=== PATIENT | male | born 1990 | race Caucasian/White ===

== ENCOUNTER 2018-10-25 16:56 | Emergency (ER) | payer SELFPAY ==
[~2018-10-25] VITALS: Ht 177.8 cm; Wt 63.5 kg
[2018-10-25 17:00] VITALS: BP 122/78
[2018-10-25] MEDS ORDERED: DIPHTH,PERTUSS(ACELL),TET TOX 0.5 ML DISP.SYRIN. VAX IM ONE (17:15)
--- NOTE | 2018-10-25 17:26 | PHYS DOC ---
Past History Past Medical History: No Pertinent History Past Surgical History: No Surgical History Alcohol Use: None Drug Use: None Adult General Chief Complaint Chief Complaint: LACERATION/AVULSION [facility] HPI Patient is a 28 year old right-handed male who presents with complaining of laceration of finger tip of left index finger that happened 2 days ago without seeking medical attention at that time. Patient states he is going to have a competition and wanted to make sure he does not get infection. Patient is not up -to-date with tetanus summarization. Review of Systems Review of Systems Constitutional: Denies fever or chills [] Eyes: Denies change in visual acuity, redness, or eye pain [] HENT: Denies nasal congestion or sore throat [] Respiratory: Denies cough or shortness of breath [] Cardiovascular: No additional information not addressed in HPI [] GI: Denies abdominal pain, nausea, vomiting, bloody stools or diarrhea [] : Denies dysuria or hematuria [] Musculoskeletal: Denies back pain or joint pain [] Integument: Denies rash or skin lesions [] Neurologic: Denies headache, focal weakness or sensory changes [] Endocrine: Denies polyuria or polydipsia [] All other systems were reviewed and found to be within normal limits, except as documented in this note. Current Medications Current Medications Current Medications Medications (Trade) Dose Ordered Sig/Tyesha Start Time Stop Time Status Last Admin Dose Admin Diphtheria/ Tetanus/Acell Pertussis (Boostrix) 0.5 ml ONCE ONCE 10/25/18 17:15 10/25/18 17:16 DC Allergies Allergies Allergies Coded Allergies Type Severity Reaction Last Updated Verified No Known Drug Allergies 10/25/18 No Physical Exam Physical Exam Constitutional: Well developed, well nourished, no acute distress, non-toxic appearance. [] HENT: Normocephalic, atraumatic Eyes: PERRLA, EOMI, conjunctiva normal, no discharge. [] Neck: Normal range of motion, no tenderness, supple, no stridor. [] Cardiovascular:Heart rate regular rhythm, no murmur [] Lungs & Thorax: Bilateral breath sounds clear to auscultation [Abdomen: Bowel sounds normal, soft, no tenderness, no masses, no pulsatile masses. [] Skin: Warm, dry, no erythema, no rash. [] Back: No tenderness, no CVA tenderness. [] Extremities: 1 cm laceration of tip of left index finger in radial side with delayed healing,No tenderness, no cyanosis, no clubbing, ROM intact, no edema. [ ] Neurologic: Alert and oriented X 3, normal motor function, normal sensory function, no focal deficits noted. [] Psychologic: Affect normal, judgement normal, mood normal. [] Current Patient Data Vital Signs Vital Signs Date Time Temp Pulse Resp B/P (MAP) Pulse Ox O2 Delivery O2 Flow Rate FiO2 10/25/18 17:00 98.2 71 18 98 Room Air EKG EKG [] Radiology/Procedures Radiology/Procedures [] Course & Med Decision Making Course & Med Decision Making discharge: I've spoken with the patient and/or caregivers. I've explained the patient's condition, diagnosis and treatment plan based on information available to me at this time. I've answered the patient's and/or caregivers questions and addressed any concerns. The patient and/or caregivers have a good understanding the patient's diagnosis, condition and treatment plan as can be expected at this point. Vital signs have been stabilized. The patient's condition is stable for discharge from the emergency department. The patient will pursue further outpatient evaluation with her primary care provider or other designated consulting physician as outlined in the discharge instructions. Patient and/or caregivers are agreeable to this plan of care and follow-up instructions have been explained in detail. The patient and/or caregivers have received these instructions in written format and expressed understanding of these discharge instructions. The patient and her caregivers are aware that if any significant change in condition or worsening of symptoms should prompt him to immediately return to this of the closest emergency department. If an emergent department is not readily available I would encourage him to call 911. Jona Disclaimer Dragon Disclaimer This electronic medical record was generated, in whole or in part, using a voice recognition dictation system. Laceration Repair Lac Repair Indication: Left index finger laceration Procedure: The patient was placed in the appropriate position superficial laceration of left index finger with delayed repair was repaired with Dermabond and Steri-Strip. Total repaired wound length: 1 cm Other Items: None The patient tolerated the procedure well Complications:none. Departure Departure: Impression: Primary Impression: Laceration of index finger with delay in treatment Disposition: HOME, SELF-CARE (at 1730) Condition: IMPROVED Referrals: PCP,NO (PCP) Patient Instructions: Laceration Care, Adult, Tissue Adhesive Wound Care Additional Instructions: Keep wound clean and dry PETRONA GOODMAN MD Oct 25, 2018 17:26
== END 2018-10-25 17:35 | disposition home or self-care (01) ==
LOC: ER 16:56
DX: S61.211A Laceration without foreign body of left index finger without damage to nail, initial encounter (principal); X58.XXXA Exposure to other specified factors, initial encounter; Y93.89 Activity, other specified; Y92.89 Other specified places as the place of occurrence of the external cause; Y99.8 Other external cause status
CPT/HCPCS: 12001; 90471; 90715; 99283-25

== ENCOUNTER 2019-03-21 15:10 | Emergency (ER) | payer SELFPAY ==
[~2019-03-21] VITALS: Ht 177.8 cm; Wt 63.5 kg
[2019-03-21] MEDS ORDERED: LIDOCAINE 1%/EPI 1:100,000 20 ML VIAL. IJ ONE (15:15)
--- NOTE | 2019-03-21 15:52 | PHYS DOC ---
Past History Past Medical History: No Pertinent History Past Surgical History: No Surgical History Alcohol Use: None Drug Use: None Adult General Chief Complaint Chief Complaint: HEAD INJURY/TRAUMA HPI HPI Patient is a 28-year-old male who presents with report of head injury that he sustained while going down some stairs. Patient tripped and fell and struck the top of his head on concrete stair. Patient denies any loss of consciousness. He reports moderate headache to the area. He denies any dizziness, nausea or vomiting. He also denies any neck pain. Review of Systems Review of Systems Constitutional: Denies fever or chills [] Eyes: Denies change in visual acuity, redness, or eye pain [] Respiratory: Denies cough or shortness of breath [] Cardiovascular: No additional information not addressed in HPI [] GI: Denies nausea or vomiting[] Musculoskeletal: Denies back pain or joint pain [] Integument: Positive scalp laceration[] Neurologic: Complains of headache without focal weakness or sensory changes [] Current Medications Current Medications Current Medications Medications (Trade) Dose Ordered Sig/Tyesha Start Time Stop Time Status Last Admin Dose Admin Lidocaine/ Epinephrine (Xylocaine 1%-Epi 1:100,000) 20 ml 1X ONCE 03/21/19 15:15 03/21/19 15:18 DC Allergies Allergies Allergies Coded Allergies Type Severity Reaction Last Updated Verified No Known Drug Allergies 03/21/19 No Physical Exam Physical Exam Constitutional: Well developed, well nourished, no acute distress, non-toxic appearance. [] HENT: Normocephalic, with approximately 7 cm laceration to the mid parietal region of scalp that is semicircular in shape extending down into muscle. No galeal involvement is noted. Margins are fairly sharp. [] Eyes: PERRLA, EOMI, conjunctiva normal, no discharge. [] Neck: Normal range of motion, no tenderness, supple, no stridor. [] Cardiovascular:Heart rate regular rhythm, no murmur [] Lungs & Thorax: Bilateral breath sounds clear to auscultation [] Skin: Laceration as noted above. [] Neurologic: Alert and oriented X 3, no focal deficits noted. [] Current Patient Data Vital Signs Vital Signs Date Time Temp Pulse Resp B/P (MAP) Pulse Ox O2 Delivery O2 Flow Rate FiO2 03/21/19 15:15 98.5 90 18 99 Room Air EKG EKG [] Radiology/Procedures Radiology/Procedures [] Impressions: PROCEDURE: CT HEAD WO CONTRAST CT HEAD WO CONTRAST Clinical indications: fall, head injury, large laceration at top of head - stapled COMPARISON: None available. Technique: Noncontrast axial cross sectional scanning of the head was performed. PQRS compliance Statement One or more of the following individualized dose reduction techniques were utilized for this study: 1. Automated exposure control 2. Adjustment of the mA and/or kV according to patient size 3. Use of iterative reconstruction technique Findings: No acute intracranial hemorrhage or midline shift or mass-effect or hydrocephalus or extra-axial fluid collection is seen. No focal hypodense area or sulci effacement is seen to indicate an acute infarct or edema radiographically. No skull fracture or pneumocephalus is seen. No opacification of the mastoid sinuses or the paranasal sinuses is seen. The maxillary sinuses are not completely seen in this study. Impression: No acute intracranial abnormality is seen. Electronically signed by: Obey Dixon MD (03/21/2019 3:51 PM) [id number] Course & Med Decision Making Course & Med Decision Making Pertinent Labs and Imaging studies reviewed. (See chart for details) Laceration Repair by me: Anesthesia: 1% lidocaine with epinephrine locally Location: Parietal region of scalp Tendon/Joint/Nerves: No injury Foreign body: None detected after copious irrigation and exploration Technique: A total of 8 hollie were placed in the scalp with good reapproximation of wound margins. Complexity: No subcutaneous sutures/mucosal repair/edge excision Post Closure Length: 7 cm Patient's bleeding was easily controlled in the department and there is no indication of anemia. No evidence of compartment syndrome, neurologic injury, vascular injury, open joint, tendon laceration, or foreign body. Patient is appropriate for outpatient follow up. 48 hour wound check. Scar minimization instructions given. Dragon Disclaimer Dragon Disclaimer This electronic medical record was generated, in whole or in part, using a voice recognition dictation system. Departure Departure: Impression: Primary Impression: Head injury Additional Impression: Scalp laceration Disposition: 01 HOME, SELF-CARE Condition: STABLE Referrals: PCP,NO (PCP) Patient Instructions: Head Injury, Adult, Laceration Care, Adult Scripts Hydrocodone Bit/Acetaminophen (NORCO 5-325 TABLET) 1 Each Tablet 1 TAB PO PRN Q6HRS PRN for PAIN, #10 TAB 0 Refills Prov: COLETTE MIRAMONTES Jr. DO 03/21/19 Problem Qualifiers Primary Impression: Head injury Encounter type: initial encounter Qualified Codes: S09.90XA - Unspecified injury of head, initial encounter Additional Impression: Scalp laceration Encounter type: initial encounter Qualified Codes: S01.01XA - Laceration without foreign body of scalp, initial encounter COLETTE MIRAMONTES Jr. DO March 21, 2019 15:52
[2019-03-21] MEDS ORDERED: HYDR-3165 PO (16:06)
[2019-03-21 16:20] VITALS: BP 119/71
== END 2019-03-21 16:22 | disposition home or self-care (01) ==
LOC: ER 15:10
DX: S01.01XA Laceration without foreign body of scalp, initial encounter (principal); R51 Headache; W01.198A Fall on same level from slipping, tripping and stumbling with subsequent striking against other object, initial encounter; Y93.89 Activity, other specified; Y92.89 Other specified places as the place of occurrence of the external cause; Y99.8 Other external cause status
CPT/HCPCS: 12002; 70450; 99284-25

== ENCOUNTER 2019-03-31 09:32 | Emergency (ER) | payer SELFPAY ==
[~2019-03-31] VITALS: Ht 177.8 cm; Wt 63.5 kg
[~2019-03-31 09:32] MED LIST: HYDR-3165 PO
[2019-03-31 09:55] VITALS: BP 153/87
--- NOTE | 2019-03-31 10:12 | PHYS DOC ---
Past History Past Medical History: No Pertinent History Past Surgical History: No Surgical History Alcohol Use: None Drug Use: None Adult General Chief Complaint Chief Complaint: SUTURE/STAPLE REMOVAL HPI HPI Patient is a 28-year-old male presents for suture removal. He had hollie placed approximately 10 days ago to his scalp after a mechanical fall as he was tripped up by his dog. He denies any issues with the sutures. No purulent drainage. No fever. No increasing pain. No increasing redness. Symptoms are currently mild.[] Review of Systems Review of Systems Constitutional: Denies fever or chills [] Eyes: Denies change in visual acuity, redness, or eye pain [] HENT: Denies nasal congestion or sore throat [] Respiratory: Denies cough or shortness of breath [] Cardiovascular: No chest pain or palpitations[] GI: Denies abdominal pain, nausea, vomiting, bloody stools or diarrhea [] : Denies dysuria or hematuria [] Musculoskeletal: Denies back pain or joint pain [] Integument: Denies rash or skin lesions [] Neurologic: Denies headache, focal weakness or sensory changes [] Endocrine: Denies polyuria or polydipsia [] All other systems were reviewed and found to be within normal limits, except as documented in this note. Allergies Allergies Allergies Coded Allergies Type Severity Reaction Last Updated Verified No Known Drug Allergies 03/21/19 No Physical Exam Physical Exam Constitutional: Well developed, well nourished, no acute distress, non-toxic appearance. [] HENT: Normocephalic, staple line across the scalp appears to be clean, dry, intact, no purulent drainage, no significant erythema. bilateral external ears normal, oropharynx moist, no oral exudates, nose normal. [] Eyes: PERRLA, EOMI, conjunctiva normal, no discharge. [] Neck: Normal range of motion, no tenderness, supple, no stridor. [] Cardiovascular:Heart rate regular rhythm, no murmur [] Lungs & Thorax: Bilateral breath sounds clear to auscultation [] Abdomen: Not examined[] Skin: Warm, dry, no erythema, no rash. [] Back: No tenderness, no CVA tenderness. [] Extremities: No tenderness, no cyanosis, no clubbing, ROM intact, no edema. [] Neurologic: Alert and oriented X 3, normal motor function, normal sensory function, no focal deficits noted. [] Psychologic: Affect normal, judgement normal, mood normal. [] EKG EKG [] Radiology/Procedures Radiology/Procedures [] Course & Med Decision Making Course & Med Decision Making Pertinent Labs and Imaging studies reviewed. (See chart for details) [] Dragon Disclaimer Dragon Disclaimer This electronic medical record was generated, in whole or in part, using a voice recognition dictation system. Departure Departure: Impression: Primary Impression: Encounter for removal of hollie Disposition: HOME, SELF-CARE Condition: IMPROVED Referrals: PCP,NO (PCP) Patient Instructions: Staple Removal, Care After Additional Instructions: Keep the wound clean and dry. You may shower. Follow-up with your regular doctor. If you do not have regular doctor a list of local clinics will be provided for you. Return to the ER if worsening pain, increasing redness, pu rulent drainage, or any other concerns. Suture/Staple Removal Indication: Scalp staple removal Procedure: The patient was placed in the appropriate position and the hollie] were removed WITHOUT DIFFICULTY:]. Other items: None The patient tolerated the procedure well. Complications: None AFRICA GRAFF DO March 31, 2019 10:12
== END 2019-03-31 10:18 | disposition home or self-care (01) ==
LOC: ER 09:32
DX: S01.01XD Laceration without foreign body of scalp, subsequent encounter (principal); W01.0XXD Fall on same level from slipping, tripping and stumbling without subsequent striking against object, subsequent encounter
CPT/HCPCS: 99281